=== PATIENT | female | born 1950 | race Caucasian/White ===

== ENCOUNTER → 2020-09-07 | Outpatient (CLI) | payer MEDICARE, OTHER ==
[~2020-09-07] MED LIST: ALPRAZOLAM0.5 MG PO; CELEBREX100 MG PO; FLOMAX0.4 MG PO; HARD NAILS2500 MCG PO; LIDOPATCH1 EACH TP; MICROZIDE12.5 MG PO; NORCO 10-325 T1 EACH PO; NORCO 7.5-3251 EACH PO; ROBAXIN-750750 MG PO; ZIAC 10-6.25 M1 EACH PO; ZOFRAN4 MG PO; eye vitamin PO
== END ==
LOC: EXRD 14:58
DX: N20.0 Calculus of kidney (principal); M54.5 Low back pain; M19.90 Unspecified osteoarthritis, unspecified site; M47.816 Spondylosis without myelopathy or radiculopathy, lumbar region
CPT/HCPCS: 72100; 73522; 74018

== ENCOUNTER → 2022-03-01 | Outpatient (CLI) | payer MEDICARE, OTHER | LOC: KOH-I 11:00 | DX: M06.4 Inflammatory polyarthropathy (principal); M79.18 Myalgia, other site; M79.642 Pain in left hand | CPT/HCPCS: 73130; 73610; 73630 ==

== ENCOUNTER → 2022-03-10 | Outpatient (CLI) | payer MEDICARE, OTHER ==
[~2022-03-10] MED LIST changes: +OMNICEF 300 MG300 MG PO
== END ==
LOC: EXRD 10:30
DX: M81.0 Age-related osteoporosis without current pathological fracture (principal); M85.88 Other specified disorders of bone density and structure, other site
CPT/HCPCS: 77080

== ENCOUNTER 2022-03-12 20:46 | Emergency (ER) | payer MEDICARE, OTHER ==
[~2022-03-12 20:46] MED LIST changes: -OMNICEF 300 MG300 MG PO
[2022-03-12 22:53] LABS: HEMOGLOBIN 13.5 gm/dl (12.3-15.3); RED BLOOD COUNT 4.82 M/UL (4.00-5.10); WHITE BLOOD COUNT 8.9 K/UL (4.5-11.0)
[2022-03-12 23:11] LABS: BUN/CREATININE RATIO 26 (0-10)
[2022-03-13] MEDS ORDERED: OMNICEF 300 MG300 MG PO (02:39)
== END 2022-03-13 02:48 | disposition home or self-care (01) ==
LOC: ER1 20:46
PROVIDERS: Student in an Organized Health Care Education/Training Program
DX: N30.90 Cystitis, unspecified without hematuria (principal); E11.9 Type 2 diabetes mellitus without complications; Z87.442 Personal history of urinary calculi; I10 Essential (primary) hypertension; Z88.1 Allergy status to other antibiotic agents
CPT/HCPCS: 80053; 81001; 83690; 85025; 87077; 87086; 87186; 96374; 99284; J0696

== ENCOUNTER → 2022-04-27 | Outpatient (CLI) | payer MEDICARE, OTHER ==
[~2022-04-27] VITALS: Ht 162.6 cm; Wt 83.0 kg
[~2022-04-27] MED LIST changes: +OMNICEF 300 MG300 MG PO
== END ==
LOC: EROP 10:50
DX: U07.1 COVID-19 (principal)
CPT/HCPCS: M0222; Q0222